=== PATIENT | female | born 2000 | race Caucasian/White ===

== ENCOUNTER 2018-09-23 00:06 | Emergency (ER) | payer SELFPAY ==
[2018-09-23] MEDS ORDERED: NORMAL SALINE 1000 ML 1,000 ML IV ONE (00:47)
[2018-09-23] MEDS ORDERED: KETOROLAC TROMETHAMINE INJ/PF 30 MG/1 ML SDV IV ONE (00:48)
[2018-09-23] MEDS ORDERED: DEXAMETHASONE SOD PHOS INJ 10 MG/1 ML VIAL IV ONE ×2 (00:48→03:13)
--- NOTE | 2018-09-23 00:55 | ER Document Report ---
ED General - General Mode of Arrival: Ambulatory Information source: Patient TRAVEL OUTSIDE OF THE [place] IN LAST 30 DAYS: No - HPI Patient complains to provider of: Very sore throat, fever, body aches all over Onset: Yesterday Onset/Duration: Sudden Severity: Severe Pain Level: 4 Associated symptoms: Body/muscle aches, Chills, Fever, Sore throat Exacerbated by: Denies Relieved by: Denies Similar symptoms previously: No Recently seen / treated by doctor: No <INGRID TAO - Last Filed: 09/23/18 02:00> <CHRIS BENÍTEZ - Last Filed: 09/23/18 05:18> - General Chief Complaint: Sore Throat Stated Complaint: SORE THROAT,FEVER,HEADACHE Time Seen by Provider: 09/23/18 00:36 - HPI Notes: 18-year-old female coming in today chief complaint very sore throat, hurts to swallow, fevers and chills, generalized myalgias and arthralgias. Generalized malaise. Normally healthy. No sick contacts. (INGRID TAO) - Related Data Allergies/Adverse Reactions: hydrocodone [From Lortab] Allergy (Verified 09/23/18 02:03) Past Medical History - General Information source: Patient - Social History Smoking Status: Smoker,Current Status Unk Family History: Reviewed & Not Pertinent <INGRID TAO - Last Filed: 09/23/18 02:00> Review of Systems <INGRID TAO - Last Filed: 09/23/18 02:00> - Review of Systems Notes: Constitutional: Positive for fevers, chills, and myalgias EENT: No eye redness. No eye pain. No ear pain. Positive sore throat, positive odynophagia Cardiovascular: No chest pain. No palpitations. Respiratory: No cough. No shortness of breath. No respiratory distress. Gastrointestinal: No abdominal pain. No nausea, vomiting, or diarrhea. Genitourinary: Atraumatic. No lesions. No pain. No discharge. Musculoskeletal: Atraumatic. No swelling. No deformities. Skin: No rash or lesions. Lymphatic: No swollen lymph nodes. Neurologic: No headache. No syncope. Psychiatric: No suicidal or homicidal ideation. (INGRID TAO) Physical Exam <INGRID TAO - Last Filed: 09/23/18 02:00> - Vital signs Vitals: Temp Pulse Resp BP Pulse Ox 100.0 F 116 H 22 H 145/77 H 96 09/23/18 00:14 09/23/18 00:14 09/23/18 00:14 09/23/18 00:14 09/23/18 00:14 - Notes Notes: General: Well-developed, well-nourished. In no acute distress. Non-toxic appearing. Cardiac: Well-perfused. Slight tachycardia with regular rhythm. No murmurs rubs or gallops Pulmonary: No respiratory distress. No cyanosis. Bilateral lung fiels are clear to auscultation. Abdominal: Non-distended. Non-rigid. Bowels sounds are present in all four quadrants. No guarding or rebound. HEENT: Head is atraumatic. Conjunctivae not reddened. No tearing. PERRL. EOMI. Orbits atraumatic. No periorbital swelling or erythema. Posterior pharynx is quite swollen bilaterally with bilateral exudates. Patient has a slightly muffled voice. No drooling. No submandibular or sublingual swelling. No dy spnea Neck: Supple. No adenopathy. No meningismus. Dermatologic: Warm with good turgor. No rash. Atraumatic. Chest: Atraumatic. No chest wall tenderness to palpation. Musculoskeletal: Moves all extremities well. No range of motion deficits. no muscular or joint tenderness. No paraspinal muscle tenderness. no midline spinal tenderness or step-off. Genitourinary: Examination deferred Neurologic: No gross neurologic deficits. Psychiatric: Normal mood. (INGRID TAO) Course <INGRID TAO - Last Filed: 09/23/18 02:00> - Laboratory Result Diagrams: 09/23/18 01:58 <CHRIS BENÍTEZ - Last Filed: 09/23/18 05:18> - Re-evaluation Re-evalutation: 09/23/18 00:57 Patient has an impressive swelling in the back of her throat, however I do not see anything concerning for a peritonsillar abscess. Will check strep mono and flu. Most likely will end up treating this patient with antibiotics just given her presentation unless her flu or mono would tell me not to. 09/23/18 02:01 Shift-end note: Patient is still in the process of getting her medications and IV fluids started. So far her strep and influenza swabs are negative. Mononucleosis pending. CBC pending. My colleague Chris Benítez came over to introduce himself to the patient. He is aware of the situation at this time and will follow up on lab work and treatment and final disposition. (INGRID TAO) 09/23/18 [place] negative, influenza negative, strep negative. Patient with exudative pharyngitis, anterior cervical adenopathy, fever, no cough. Patient is improved on reevaluation after receiving dexamethasone. She is tolerating p.o. without difficulty. No sign of abscess noted. I discussed options with patient, decision was made to treat her with penicillin G, 1 more dose of dexamethasone, and then she will be discharged with follow-up instructions and return precautions. Patient states satisfaction agreement with plan. (CHRIS BENÍTEZ) - Vital Signs Vital signs: Temp Pulse Resp BP Pulse Ox 99.2 F 98 16 120/62 96 09/23/18 03:39 09/23/18 03:39 09/23/18 03:39 09/23/18 03:39 09/23/18 03:39 - Laboratory Laboratory results interpreted by me: 09/23/18 01:58 WBC 16.2 H Seg Neutrophils % 79.8 H Lymphocytes % 11.7 L Absolute Neutrophils 12.9 H Discharge <INGRID TAO - Last Filed: 09/23/18 02:00> <CHRIS BENÍTEZ - Last Filed: 09/23/18 05:18> - Discharge Clinical Impression: Exudative pharyngitis, Anterior cervical adenopathy Fever Qualifiers: Fever type: unspecified Qualified Code(s): R50.9 - Fever, unspecified Condition: Stable Disposition: HOME, SELF-CARE Additional Instructions: Your symptoms and evaluation meet criteria for strep throat. You have been treated for this. There is a possibility that this is viral, if it is it may last longer, you may also experience secondary effects such as swelling of the spleen. See mononucleosis directions below. Take Tylenol or ibuprofen for pain, drink plenty fluids, and rest. Follow-up with primary care. Return for any concerning symptoms. Mononucleosis This is a viral infection which can last several weeks. Typically, a week or two of tiredness precedes a sore throat, swollen glands, fever, and aches. Sometimes there's a rash. In severe cases, swollen spleen and liver develop. There is no cure for mononucleosis. You should rest, drink plenty of fluids, and avoid contact sports until you are better. A follow-up examination is usually done in about a week. Further laboratory testing may be necessary then. See the doctor if there is significant worsening of the symptoms or onset of new symptoms such as severe headache, stiff neck, generalized or severe abdominal pain, or faintness.
[2018-09-23 01:44] LABS: A TYPE INFLUENZA AG NEGATIVE (NEGATIVE)
[2018-09-23 01:45] LABS: B INFLUENZA AG NEGATIVE (NEGATIVE)
[2018-09-23 02:07] LABS: ABSOLUTE BASOPHILS # (AUTO) 0.1 10^3/uL (0.0-0.2); ABSOLUTE EOSINOPHILS # (AUTO) 0.1 10^3/uL (0.0-0.6); ABSOLUTE LYMPHOCYTES (AUTO) 1.9 10^3/uL (0.5-4.7); ABSOLUTE MONOCYTES (AUTO) 1.2 10^3/uL (0.1-1.4); ABSOLUTE NEUT (AUTO) 12.9 10^3/uL (1.7-8.2); BASOPHILS % (AUTO) 0.4 % (0-2); EOSINOPHILS % (AUTO) 0.5 % (0-6); HEMATOCRIT 41.7 % (36.0-47.0); HEMOGLOBIN 14.3 g/dL (12.0-15.5); LYMPHOCYTES % (AUTO) 11.7 % (13-45); MEAN CORPUSCULAR HEMOGLOBIN 29.2 pg (27.0-33.4); MEAN CORPUSCULAR HGB CONC 34.4 g/dL (32.0-36.0); MEAN CORPUSCULAR VOLUME 85 fl (80-97); MONOCYTES % (AUTO) 7.6 % (3-13); PLATELET COUNT 266 10^3/uL (150-450); RED BLOOD COUNT 4.91 10^6/uL (3.72-5.28); RED CELL DISTRIBUTION WIDTH 13.3 % (11.5-14.0); SEGMENTED NEUTROPHILS % (AUTO) 79.8 % (42-78); TOTAL CELLS COUNTED % (AUTO) 100 %; WHITE BLOOD COUNT 16.2 10^3/uL (4.0-10.5)
[2018-09-23] MEDS ORDERED: PENICILLIN G BENZATHINE 1.2 MILLION UNIT/2 ML DISP.SYRIN IM ONE (03:13)
[2018-09-23] MEDS ORDERED: ONDANSETRON HCL INJ/PF 4 MG/2 ML SDV IV ONE (03:13)
[2018-09-23 03:47] VITALS: BP 120/62
== END 2018-09-23 04:12 | disposition home or self-care (01) ==
LOC: ER 00:06
DX: J02.9 Acute pharyngitis, unspecified (principal); R59.0 Localized enlarged lymph nodes; R50.9 Fever, unspecified; M79.10 Myalgia, unspecified site; R13.10 Dysphagia, unspecified; R53.81 Other malaise; F17.200 Nicotine dependence, unspecified, uncomplicated
CPT/HCPCS: 99283; 96372; 96361; 96375; 96365; 36415; 87070; 87880; 85025; 86308; 87804; J1885; J0561; J2405; J7030; J1100